=== PATIENT | male | born 1955 | race African-American/Black ===

== ENCOUNTER → 2020-12-09 14:03 | Outpatient (CLI) | payer MEDICARE, BC, SELFPAY ==
--- NOTE | ~2020-12-09 | XR_ITS ---
EXAMINATION: XR foot LT 2V DATE: 12/09/2020 14:30 INDICATION: Left foot pain. TECHNIQUE: 2 views of left foot were obtained. COMPARISON: None. FINDINGS: Bone alignment is normal. No fracture. There is moderate osteoarthritis of first metatarsop halangeal joint. There is severe osteoarthritis of first interphalangeal joint and mild osteoarthriti s of some of the other interphalangeal joints. There is moderate midfoot osteoarthritis. There is an enthesophyte at posterior aspect of calcaneal tuberosity. IMPRESSION: 1. Polyarticular osteoarthritis. Reviewed, dictated and finalized at location A.
== END ==
PROVIDERS: Visit Provider Nurse Practitioner Family
DX: M19.072 Primary osteoarthritis, left ankle and foot (principal)
CPT/HCPCS: 73620